=== PATIENT | male | born 1965 | race Caucasian/White ===

== ENCOUNTER 2016-08-22 07:39 | Day surgery (SDC) | payer OTHER ==
[~2016-08-22] VITALS: Ht 172.7 cm; Wt 95.0 kg
[~2016-08-22 07:39] MED LIST: FLUT16SP NS; Sodium Chloride LOK Flush 10 mL Syringe IV PRN; fentaNYL-PF 50 mCg/mL 2 mL Inj IVPUSH PRN
[2016-08-22 08:03] VITALS: BP 137/85; PULSE 60; RESP 14; O2SAT 98
[2016-08-22] MEDS: 0.9% Sodium Chloride 1,000 ML IV SCH ×2 (08:12→08:41)
[2016-08-22 08:55] VITALS: BP 134/87; PULSE 54; RESP 14; O2SAT 98
[2016-08-22 09:05] VITALS: BP 135/89; PULSE 54; RESP 16; O2SAT 97
[2016-08-22 09:15] VITALS: BP 129/84; PULSE 64; RESP 16; O2SAT 97
--- NOTE | 2016-08-22 10:35 | ENDO ---
[address] [address] ENDOSCOPY PROCEDURE PATIENT: ANNAMARIA LOAIZA : 1965 MR#: [id number] ADMIT: 08/22/2016 JOB ID: [id number] DATE: 08/22/2016 PROCEDURE: Colonoscopy. INDICATION: Screening. The patient's ASA classification is 2. Mallampati score is 2. MEDICATIONS: 1. Versed 5 mg. 2. Fentanyl 100 mcg. INSTRUMENT USED: PCF H 180 AL PREPARATION QUALITY: Was good. PROCEDURE DETAILS: After informed consent was obtained, the patient was brought into the GI suite, where he was placed on oxygen via nasal cannula and monitored with continuous pulse oximeter, telemetry and blood pressure monitoring. A time-out was performed. Then, he was placed in the left lateral decubitus position and medications were administered for sedation. A digital rectal exam was performed, which revealed an external hemorrhoid with an adherent clot. There was some mild oozing from the hemorrhoid. The prostate was palpated and felt unremarkable. The colonoscope was then gently inserted into the rectum and advanced under direct visualization to the cecum, which was identified by the presence of the ileocecal valve and appendiceal orifice. Once the cecum was reached, the colonoscope was withdrawn back into the rectum as the mucosa and lumen were examined. In the rectum, retroflexion was performed. Following retroflexion, remaining air in the rectum was suctioned, and the procedure was completed. FINDINGS: 1. On the ileocecal valve, there was an approximately 4 mm flat polyp that was removed with cold biopsy forceps. 2. A few scattered diverticula were seen in the sigmoid colon. 3. Retroflexed views in the rectum were unremarkable. 4. Large External hemorrhoid with adherent clot was noted on with drawl of the scope through the anal canal. IMPRESSION: 1. Ileocecal valve polyp. 2. Sigmoid diverticulosis. 3. External hemorrhoid. RECOMMENDATIONS: 1. Trial of hydrocortisone for treatment of hemorrhoids along with a fiber rich diet.If no improvement hydrocortisone cream, then would recommend surgical referral. 2. Repeat colonoscopy pending polyp pathology results. COMPLICATIONS: None. ESTIMATED BLOOD LOSS: Less than 5 mL. MTDD
--- NOTE | 2016-08-26 11:41 | PATH ---
SURGICAL PATHOLOGY Attending Physician:Lise Faith CASE STATUS: Signed Out PATIENT NAME: ANNAMARIA LOAIZA PID: [id number] : 1965 DATE COLLECTED:08/22/2016 17:33 SPECIMEN: Colon, Biopsy CLINICAL HISTORY: ILEO CECAL VALVE COLON POLYP FINAL DIAGNOSIS: Ileocecal Valve Polyp: Benign colonic mucosa consistent with polypoid redundancy. No evidence of malignancy or dysplasia. ICD10: D12.6 GROSS DESCRIPTION: The specimen is received in one formalin filled container labeled with the patient's name, sublabeled "ileal cecal valve colon polyp" and consists of 4 tiny portions of tissue which aggregate to 0.3 x 0.3 x 0.2 CM. The specimen is entirely submitted in one cassette. 08/22/2016 [facility] ICD-9 CODES: CPT CODES: 1: 82076 Electronically Signed Out Onel Young MD [facility] Pathology [facility] [address], [place] [address] Technical component performed at [facility], [facility] [address], [place], [address]
== END 2016-08-22 23:59 | disposition home or self-care (01) ==
LOC: END 07:39
PROVIDERS: ATTEND Internal Medicine Gastroenterology
DX: Z12.11 Encounter for screening for malignant neoplasm of colon (principal); D12.0 Benign neoplasm of cecum; K64.4 Residual hemorrhoidal skin tags; K57.30 Diverticulosis of large intestine without perforation or abscess without bleeding; M54.12 Radiculopathy, cervical region; E78.00 Pure hypercholesterolemia, unspecified
CPT/HCPCS: 45380; 99153; G0500; J2250; J3010; J7030